=== PATIENT | female | born 1950 | race Caucasian/White ===

== ENCOUNTER 2022-08-02 16:28 | Emergency (ER) | payer OTHER ==
[~2022-08-02] VITALS: Ht 152.4 cm; Wt 88.0 kg
[2022-08-02 16:41] VITALS: BP 137/75
== END 2022-08-02 22:08 | disposition left against medical advice (07) ==
LOC: ER 16:28
DX: Z53.21 Procedure and treatment not carried out due to patient leaving prior to being seen by health care provider (principal)